=== PATIENT | male | born 1940 | race Caucasian/White ===

== ENCOUNTER 2019-02-26 07:01 | Day surgery (SDC) | payer MEDICARE, OTHER ==
[2019-02-26] MEDS: Polymyxin B/Trimethoprim 10 ML Bottle EYELF SCH ×4 (07:37→09:10)
[2019-02-26] MEDS: Phenylephrine 2.5% Ophth Soln 2 ML Bot EYELF SCH ×6 (07:39→08:48)
[2019-02-26] MEDS: Brimonidine 0.2% Ophth Soln 5 ML Bottle EYELF SCH ×4 (07:40→09:10)
[2019-02-26] MEDS: Tetracaine HCl/PF 0.5% 4 ML Bottle EYELF SCH ×3 (07:40→08:55)
[2019-02-26] MEDS: Lidocaine 1% PF 2 ML SDV INJECT SCH ×2 (07:40→08:56)
[2019-02-26] MEDS: Pilocarpine 4% Ophth Soln 15 ML Bot EYELF SCH ×2 (07:40→09:10)
[2019-02-26] MEDS: Cefuroxime 10 MG/ML SYRINGE EYELF SCH ×2 (07:40→09:09)
--- NOTE | 2019-02-26 07:46 | PCM.PREANE ---
Preanesthetic Assessment - Anesthesia/Transfusion/Family Hx Anesthesia History: Prior Anesthesia Without Reaction Family History of Anesthesia Reaction: No Transfusion History: Prior Transfusion Without Reaction - Review of Systems General: No Symptoms Pulmonary: No Symptoms Cardiovascular: No Symptoms Gastrointestinal: No Symptoms Neurological: No Symptoms Other: Reports: None - Physical Assessment NPO Status Date: 02/25/19 NPO Status Time: 18:00 ASA Class: 2 Mental Status: Alert & Oriented x3 Dentition: Reports: Normal Dentition Thyro-Mental Finger Breadths: 3 Mouth Opening Finger Breadths: 3 ROM/Head Extension: Full Lungs: Clear to Auscultation, Normal Respiratory Effort Cardiovascular: Regular Rate, Regular Rhythm - Allergies Allergies/Adverse Reactions: Allergies Allergy/AdvReac Type Severity Reaction Status Date / Time No Known Allergies Allergy Verified 02/24/19 14:55 - Acknowledgements Anesthesia Type Planned: MAC Pt an Appropriate Candidate for the Planned Anesthesia: Yes Alternatives and Risks of Anesthesia Discussed w Pt/Guardian: Yes Pt/Guardian Understands and Agrees with Anesthesia Plan: Yes PreAnesthesia Questionnaire HEENT History: Reports: Cataract Cardiovascular History: Reports: None Respiratory History: Reports: None Gastrointestinal History: Reports: GERD Musculoskeletal History: Reports: Arthritis Endocrine/Metabolic History: Reports: Diabetes, Type I, Hypothyroidism Oncologic (Cancer) History: Reports: Renal (nephrectomy 1975,) - Past Surgical History HEENT Surgical History: Reports: Cataract Surgery, Tonsillectomy GI Surgical History: Reports: Appendectomy, Cholecystectomy, Colonoscopy Musculoskeletal Surgical History: Reports: ORIF ((R) hip) Oncologic Surgical History: Reports: Other (See Below) (renal (R) 2009 pancreas, spleen, gallbladder, 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) - SUBSTANCE USE Smoking Status *Q: Former Smoker - HOME MEDS Home Medications: Home Meds Insulin Aspart [NovoLOG] 0 unit SQ WITHMEALSANDBED 02/24/19 [History] Levothyroxine Sodium [Synthroid] 200 mcg PO ACBREAKFAST 02/24/19 [History] Lipase/Protease/Amylase [Zenpep DR 20,000 Unit] 1 cap PO DAILY 02/24/19 [History ] Omeprazole Magnesium [Prilosec Otc] 20 mg PO DAILY 02/24/19 [History] Tamsulosin [Flomax] 0.4 mg PO DAILY 02/24/19 [History] atorvaSTATin [Lipitor] 20 mg PO BEDTIME 02/24/19 [History] - CURRENT (IN HOUSE) MEDS Current Meds: Current Medications Brimonidine Tartrate (Alphagan 0.2% Ophth Soln) 0 ml EYELF ASDIRECTED MARINA Stop: 02/26/19 18:00 Cefuroxime Sodium (Zinacef) 0 mg EYELF ASDIRECTED MARINA Stop: 02/26/19 18:00 Lidocaine HCl (Xylocaine-Mpf 1%) 1 ml INJECT ASDIRECTED MARINA Stop: 02/26/19 18:00 Phenylephrine HCl (Andrea-Synephrine 2.5% Ophth Soln) 0 ml EYELF ASDIRECTED MARINA Stop: 02/26/19 18:00 Pilocarpine HCl (Pilocar 4% Ophth Soln) 0 ml EYELF ASDIRECTED MARINA Stop: 02/26/19 18:00 Polymyxin/Trimethoprim Sulfate (Polytrim Ophth Soln) 0 ml EYELF ASDIRECTED MARINA Stop: 02/26/19 18:00 Tetracaine HCl (Tetracaine 0.5% Steri-Unit Celena) 0 ml EYELF ASDIRECTED MARINA Stop: 02/26/19 18:00 Tropicamide (Mydriacyl 1% Ophth Soln) 0 ml EYELF ASDIRECTED MARINA Stop: 02/26/19 18:00
[2019-02-26] MEDS: Tropicamide 1% Ophth Soln 15 ML Bottle EYELF SCH ×4 (07:49→08:30)
--- NOTE | 2019-02-26 09:11 | PCM48HPAN ---
Post Anesthesia Note - EVALUATION WITHIN 48HRS OF ANESTHETIC Vital Signs in Normal Range: Yes Patient Participated in Evaluation: Yes Respiratory Function Stable: Yes Airway Patent: Yes Cardiovascular Function Stable: Yes Hydration Status Stable: Yes Pain Control Satisfactory: Yes Nausea and Vomiting Control Satisfactory: Yes Mental Status Recovered: Yes
== END 2019-02-26 09:23 | disposition home or self-care (01) ==
LOC: JD.SDS 07:01
PROVIDERS: ATTEND Ophthalmology
DX: E11.36 Type 2 diabetes mellitus with diabetic cataract (principal); H25.812 Combined forms of age-related cataract, left eye; H35.372 Puckering of macula, left eye; H16.103 Unspecified superficial keratitis, bilateral; H16.223 Keratoconjunctivitis sicca, not specified as Sjogren's, bilateral; E03.9 Hypothyroidism, unspecified; N20.0 Calculus of kidney; Z98.41 Cataract extraction status, right eye; Z96.1 Presence of intraocular lens; Z87.891 Personal history of nicotine dependence; Z79.84 Long term (current) use of oral hypoglycemic drugs; Z79.899 Other long term (current) drug therapy
CPT/HCPCS: 66984; C1780; J0697; J2001